=== PATIENT | male | born 1945 | race Caucasian/White ===

== ENCOUNTER → 2021-08-22 | Day surgery (SDC) | payer OTHER | LOC: CLIN -PAIN 09:27 → SDC-PAIN 09:27 → EDSTATUS 13:13 | PROVIDERS: ATTEND Psychiatry & Neurology Pain Medicine | DX: M54.16 Radiculopathy, lumbar region (principal) | CPT/HCPCS: 99204 ==

== ENCOUNTER 2021-08-28 09:18 | Day surgery (SDC) | payer OTHER ==
[2021-08-28] MEDS ORDERED: Depo-Medrol 40 MG/ML IM ONE (09:19)
[2021-08-28] MEDS ORDERED: Sodium Chloride 0.9(Preservative Free) 10 ML IJ ONE (09:19)
[2021-08-28] MEDS ORDERED: Xylocaine 1% Vial 30 ML PF IJ ONE (09:19)
--- NOTE | 2021-08-28 11:36 | XRAY ---
Indication: Lumbar PETERSON. Intraoperative fluoroscopy provided for 21 seconds. 2 digital spot image submitted for interpretation demonstrates midline posterior needle tip projecting just posterior to L4-L5 interspace. Correlate with intraoperative findings/report.
--- NOTE | 2021-08-28 12:35 | XRAY ---
21 seconds fluoroscopy time in surgery for lumbar PETERSON.
== END 2021-08-28 10:55 | disposition home or self-care (01) ==
LOC: SDC-PAIN 09:18
PROVIDERS: ATTEND Psychiatry & Neurology Pain Medicine
DX: M54.16 Radiculopathy, lumbar region (principal); E11.9 Type 2 diabetes mellitus without complications; Z79.899 Other long term (current) drug therapy
CPT/HCPCS: 62323; 72100; 77002; 82947; J1030; J2001; Q9966

== ENCOUNTER 2021-10-23 10:41 | Day surgery (SDC) | payer OTHER ==
[2021-10-23] MEDS ORDERED: Depo-Medrol 40 MG/ML IM ONE (10:42)
[2021-10-23] MEDS ORDERED: Sodium Chloride 0.9(Preservative Free) 10 ML IJ ONE (10:42)
[2021-10-23] MEDS ORDERED: XYLOCAINE-MPF 1% 5ML SDV IJ ONE (10:42)
--- NOTE | 2021-10-23 16:08 | XRAY ---
Indication: Right L4-S1 transforaminal PETERSON. Intraoperative fluoroscopy provided for 27 seconds. 5 digital spot image submitted for interpretation demonstrates posterior needle tips projecting over the expected right L4 and L5 nerve roots. Small amount of contrast injected for needle tip placement. Correlate with intraoperative findings/report.
--- NOTE | 2021-10-23 16:32 | XRAY ---
27 seconds of fluoroscopy was used in surgery for a right L4-S1 transforaminal PETERSON.
== END 2021-10-23 13:22 | disposition home or self-care (01) ==
LOC: SDC-PAIN 10:41
PROVIDERS: ATTEND Psychiatry & Neurology Pain Medicine
DX: M54.16 Radiculopathy, lumbar region (principal); E11.9 Type 2 diabetes mellitus without complications; Z79.899 Other long term (current) drug therapy
CPT/HCPCS: 64483; 64484; 72100; 77003; 82947; J1030